=== PATIENT | male | born 1960 ===

== ENCOUNTER → 2020-05-15 | Outpatient (CLI) | payer OTHER | LOC: SJCVCIMAG 11:34 | PROVIDERS: ATTEND Internal Medicine Cardiovascular Disease | DX: R09.89 Other specified symptoms and signs involving the circulatory and respiratory systems (principal) ==

== ENCOUNTER → 2020-05-20 | Outpatient (CLI) | payer OTHER ==
[~2020-05-20] MED LIST: ASA81BEC PO; COZAAR 25 MG TA25 M1 PO; CRESTOR40 MG PO; FISH OIL 1,001000 M3 PO; FUROSEMIDE 20 M20 MG; METFORMIN HCL500 M3 PO; OMEPRAZOLE 20 M20 M1 PO; TOPROL XL25 MG PO; VITAMIN B-1100 M2 PO; VITAMIN D310 MC2 PO
== END ==
LOC: SJCVCIMAG 07:17
PROVIDERS: ATTEND Internal Medicine Cardiovascular Disease
DX: R07.9 Chest pain, unspecified (principal); I25.810 Atherosclerosis of coronary artery bypass graft(s) without angina pectoris; I10 Essential (primary) hypertension; E78.00 Pure hypercholesterolemia, unspecified; M19.90 Unspecified osteoarthritis, unspecified site; E11.9 Type 2 diabetes mellitus without complications; E78.5 Hyperlipidemia, unspecified; Z86.73 Personal history of transient ischemic attack (TIA), and cerebral infarction without residual deficits; Z79.899 Other long term (current) drug therapy; Z95.1 Presence of aortocoronary bypass graft

== ENCOUNTER → 2020-05-26 | Outpatient (CLI) | payer OTHER ==
[~2020-05-26] VITALS: Ht 190.5 cm; Wt 124.7 kg
[2020-05-26 07:17] VITALS: BP 137/57
[2020-05-26 07:22] LABS: HEMATOCRIT 42.7 % (42.0-52.0); HEMOGLOBIN 14.5 gm/dL (14.0-18.0); MCH 28.1 pg (26.0-34.0); MCHC 33.9 g/dL (28.0-37.0); MCV 82.8 fL (80.0-100.0); RBC 5.15 mil/uL (4.50-6.00); RDW 13.4 % (10.5-14.5); WBC 6.9 thou/uL (4.0-11.0)
[2020-05-26 07:44] LABS: CALCIUM 8.7 mg/dL (8.5-10.1); CREATININE 0.9 mg/dL (0.7-1.3); POTASSIUM 3.9 mmol/L (3.5-5.1)
--- NOTE | 2020-05-26 12:31 | CATHLAB ---
[facility] [address] [address] INVASIVE PROCEDURE REPORT Name: GUY AVILES Room #: REG [facility].#: [id number] Admission: 05/26/20 Attend Phys: Terry Mcpherson MD Discharge: Date of : 62 Report #: [id number] REPORT FOR: cc: Carlos Lee Gregory DO Park, Jin S. MD ~ APPROVED REPORT Study performed: 05/26/2020 07:55:54 Patient Details Patient Status: Out-Patient Room #: The patient is a 60 year-old male Event Personnel Terry Mcpherson Sheet Metal Operator, Lam Norton RN RN, Marie Kang RN, Rudolph Weller RTR Monitor, Lindy Grady RTR Scrub, Pilar Hoskins RTR, [employer] ROLLER Scrub Procedures Performed Left Heart Cath Coronaries, Bypass Grafts [id number] LHCCORCABG Art Access - R femoral artery* 03328 Initial Mod Sed Same Phys/QHP Gr5y [id number] Mod Sed Same Phys/QHP Ea [id number] Hemostasis with Manual pressure Indication Positive stress test, Chest pain Risk Factors Hypercholesterolemia, Coronary Artery DiseaseHypertension, Diabetes Previous Procedures/Diagnoses Previous CABG Procedure Narrative The patient was brought electively to the Cardiac Catheterization Laboratory and was prepped and draped in a sterile manner. The Right Groin^ was infiltrated with 1% Lidocaine subcutaneous anesthesia. A PINNACLE 4FR Sheath #[id number] sheath was inserted into the RFA^. Coronary angiography was performed using coronary diagnostic catheters. The right coronary system was accessed and visualized with a JR4 catheter. The left coronary system was accessed and visualized with a JL4 catheter. The left ventricle was accessed and visualized with a JR4 catheter. Hemostasis was obtained with manual pressure [facility] [address] [place] [address] INVASIVE PROCEDURE REPORT Name: TRACIGUY Brook Room #: [facility] [id number] Admission: 05/26/20 Attend Phys: Terry Mcpherson MD Discharge: Date of : 62 Report #: [id number] following sheath removal without any complications. The patient tolerated the procedure well and there were no complications associated with the procedure. There was no hematoma. The SVG to the diagnoal and OM was accessed and visualized with a 4FR JR4. The DENT was accessed and visualized with a 4fr IM catheter. Intraoperative Conscious Sedation Sedation start time: 8:28 Case end Time: 9:16 Fentanyl 50 mcg Versed 2 mg Fluoro Time: 9.30 minutes Dose: DAP 71361.00 cGycm2 3306 mGy Contrast Type and Amount: Omnipaque 90 ml Coronary Angiography The patient's coronary anatomy is right dominant. Diagnostic Cath Left Main There is a severe occlusion of the distal left main segment, 60%. LAD There is a total occlusion at the ostium. There is a patent DENT graft with an end-to-side anastomosis to the mid LAD. After the anastomosis, there is both retrograde and anterograde flow in the [place] LAD, also filling the second diagonal artery. Diagonal 1 There is a patent sequential SVG to the first diagonal artery and first obtuse marginal artery. This vein graft has ectatic regions with non-laminar flow. There appears to be a moderate lesion in the distal vein graft in between D1 and OM1. Circumflex Supplies 1 OM vessel. OM1 This vessel has a dual filling, one from the [place] left main artery and the other from the sequential SVG. Right Coronary The RCA is occluded proximally. There is a patent SVG to the distal RCA, filling the PDA and RPL branches. Left Ventriculography Left Ventriculography was not performed. Ejection Fraction was 55-60% based off patient's Nuclear Cardiac Stress Test. An LVEDP was measured and there is no gradient across the outflow tract. Hemodynamics The aortic pressure is 137/75 mmHg with a mean of 101 mmHg. The left ventricular pressure is 135/10 mmHg with a mean of mmHg. [facility] [address] [place] [address] INVASIVE PROCEDURE REPORT Name: GUY AVILES Room #: REG [facility].R.#: [id number] Admission: 05/26/20 Attend Phys: Terry Mcpherson MD Discharge: Date of : 62 Report #: [id number] ventricular end diastolic pressure is 19 mmHg. Pullback from the left ventricle to the aorta revealed no gradient across the aortic valve. Conclusion 1. There is a patent DENT graft to the LAD, with retrograde filling of the second diagonal artery. 2. There is a patent sequential SVG to the first diagonal artery and first obtuse marginal artery. There is a moderate stenosis in the distal portion of the vein graft. 3. There is a patent SVG to the distal RCA. 4. There is normal LV systolic function. 5. Recommend guideline directed medical therapy and risk factor management. <ELECTRONICALLY SIGNED> By: Terry Mcpherson MD 05/26/20 1230 1230 1230 Terry Mcpherson MD /INF
== END | disposition home or self-care (01) ==
LOC: CATH 06:27
PROVIDERS: ATTEND Internal Medicine Cardiovascular Disease
DX: R07.9 Chest pain, unspecified (principal); R94.39 Abnormal result of other cardiovascular function study; I25.810 Atherosclerosis of coronary artery bypass graft(s) without angina pectoris; I10 Essential (primary) hypertension; E11.9 Type 2 diabetes mellitus without complications; E78.00 Pure hypercholesterolemia, unspecified; M19.90 Unspecified osteoarthritis, unspecified site; Z98.890 Other specified postprocedural states; Z79.899 Other long term (current) drug therapy; Z79.4 Long term (current) use of insulin; Z79.82 Long term (current) use of aspirin